=== PATIENT | male | born 1940 | race Caucasian/White ===

== ENCOUNTER 2017-05-01 07:55 | Emergency (ER) | payer OTHER ==
[~2017-05-01] VITALS: Ht 188 cm; Wt 89.5 kg
[~2017-05-01 07:55] MED LIST: BACT800T5 PO; CEPH500C3 PO; METF500 PO; [UNRECOGNIZED DRUG - REMARK]
[2017-05-01 08:05] VITALS: BP 134/64; PULSE 75; RESP 16; TEMP 97.6; O2SAT 98
[2017-05-01] MEDS ORDERED: GLIP5TAB8 PO (08:34)
[2017-05-01] MEDS ORDERED: LISI-519 PO (08:34)
[2017-05-01] MEDS ORDERED: METF500T PO (08:34)
[2017-05-01] MEDS ORDERED: ATOR1TAB18 PO (08:34)
--- NOTE | 2017-05-01 08:36 | PD ---
HPI Chief Complaint: Cold / Flu Symptoms Time Seen by Provider: 08:23 Travel History International Travel<30 days: No Contact w/Intl Traveler<30days: No Traveled to known affect area: No History of Present Illness HPI The patient is a 76-year-old male who presents emergency department for bilateral eye drainage and redness, nasal congestion, sore throat, cough, and body aches. The patient is a 5 day history of a productive cough producing white sputum. He also complains of a mild sore throat and nasal congestion. He now notes his eyes are red with matting in the morning and mild drainage. The patient denies any tobacco use or history of chronic pneumonia. He denies any fever, chills, or sweats. He does complain of generalized weakness and body aches. The patient thinks he has the flu. He denies any nausea, vomiting , diarrhea, or abdominal pain. Symptoms are mild to moderate without any alleviating or exacerbating factors. PFSH Past Medical History Diabetes: Yes Patient Takes Glucophage: Yes Hypertension: Yes Immunizations Current: Yes ([facility] 2016) Influenza Vaccination: Yes Past Surgical History Surgical History: No Previous Surgery Social History Alcohol Use: Yes (RARELY) Tobacco Use: No Substance Use: No Allergies-Medications (Allergen,Severity, Reaction): Coded Allergies: No Known Allergies (Unverified , 05/01/17) Reported Meds & Prescriptions Reported Meds & Active Scripts Active Polytrim Opth Drops (Polymyxin/Trimethoprim Sulfate) 10,000-0.1 Unit/Ml-% Soln 1 Drop EACH EYE Q6HR 7 Days Reported Atorvastatin (Atorvastatin Calcium) 80 Mg Tab 80 Mg PO HS Lisinopril 5 Mg Tab 5 Mg PO DAILY Metformin (Metformin HCl) 500 Mg Tab 500 Mg PO BIDPC With meals Glipizide 5 Mg Tab 5 Mg PO NOON Take 30 minutes before a meal Review of Systems Except as stated in HPI: all other systems reviewed are Neg General / Constitutional: No: Fever, Chills HENT: Positive: Sore Throat, Congestion Cardiovascular: No: Chest Pain or Discomfort Respiratory: Positive: Cough, No: Shortness of Breath Gastrointestinal: No: Nausea, Vomiting, Abdominal Pain, Loss of Appetite Musculoskeletal: Positive: Myalgias, Weakness Physical Exam Narrative GENERAL: Awake, alert, pleasant 76-year-old male who appears his stated age and is in no acute respiratory distress. SKIN: Focused skin assessment warm/dry. HEAD: Atraumatic. Normocephalic. EYES: Pupils equal and round. Mild injection bilateral conjunctiva with matting noted in the eyelashes. ENT: No nasal bleeding or discharge. Mucous membranes pink and moist. Oropharynx reveals cobblestoning in posterior oropharynx but no exudate. NECK: Trachea midline. No JVD. CARDIOVASCULAR: Regular rate and rhythm. No murmur appreciated. RESPIRATORY: No accessory muscle use. Clear to auscultation. Breath sounds equal bilaterally. GASTROINTESTINAL: Abdomen soft, non-tender, nondistended. No rebound tenderness. MUSCULOSKELETAL: No obvious deformities. No clubbing. No cyanosis. No edema. NEUROLOGICAL: Awake and alert. No obvious cranial nerve deficits. Motor grossly within normal limits. Normal speech. PSYCHIATRIC: Appropriate mood and affect; insight and judgment normal. Data Data Last Documented VS Vital Signs Date Time Temp Pulse Resp B/P Pulse Ox O2 Delivery O2 Flow Rate FiO2 05/01/17 08:30 Room Air 05/01/17 08:05 97.6 75 16 134/64 98 Orders Chest, Single Ap (05/01/17 ) [facility] Medical Decision Making Medical Screen Exam Complete: Yes Emergency Medical Condition: Yes Medical Record Reviewed: Yes Interpretation(s) Chest x-ray reveals no acute disease Differential Diagnosis Differential diagnosis includes URI, viral syndrome, influenza, strep pharyngitis, pneumonia, bronchitis. Narrative Course The patient's symptoms of sore throat, cough, nasal congestion, and conjunctivitis most likely are viral in origin. The patient's symptoms have been ongoing for 5 days, therefore, no influenza test performed. Chest x-ray was obtained to evaluate for possible secondary pneumonia. Chest x-ray reveals no acute disease. The patient appears to have a viral syndrome with secondary conjunctivitis. The patient will be placed on Polytrim. He is advised symptomatic care and a follow-up with his primary physician. He will be provided a copy of his chest x-ray results at discharge. Diagnosis Primary Impression: Viral syndrome Additional Impression: Conjunctivitis Qualified Code: H10.33 - Acute conjunctivitis of both eyes, unspecified acute conjunctivitis type Patient Instructions: General Instructions Additional Instructions: Medications as directed. Follow-up with your primary physician. Return if symptoms worsen or progress. Plenty of fluids to stay hydrated. Clean eyes in the morning with warm compresses. Plenty of handwashing. Please provide the patient a copy of his chest x-ray results at discharge. Med/Other Pt SpecificInfo: Prescription(s) given Scripts Polymyxin B-Trimethoprim Opth Drops (Polytrim Opth Drops)10,000-0.1 Unit/Ml-% Soln1 Drop EACH EYE Q6HR 7 Days Ref 0 Prov:Tony Martin MD 05/01/17 Disposition: 01 DISCHARGE HOME Condition: Stable Tony Martin MD May 01, 2017 08:36
[2017-05-01] MEDS ORDERED: POLY10O EACH EYE (08:44)
--- NOTE | 2017-05-01 09:07 | RADRPT ---
EXAM DATE/TIME: 05/01/2017 08:51 [facility] COMPARISON: No previous studies available for comparison. INDICATIONS : Short of breath. MEDICAL HISTORY : Diabetes mellitus type II. SURGICAL HISTORY : None. ENCOUNTER: Initial ACUITY: 4 - 6 days PAIN SCORE: 0/10 LOCATION: Bilateral chest FINDINGS: A single view of the chest demonstrates the lungs to be symmetrically aerated without evidence of mas s, infiltrate or effusion. The cardiomediastinal contours are unremarkable. Osseous structures are intact. CONCLUSION: No acute disease. Eleno Pettit MD FACR on May 01, 2017 at 9:05 Board Certified Radiologist. This report was verified electronically.
== END 2017-05-01 09:52 | disposition home or self-care (01) ==
LOC: PHED 07:55
DX: B34.9 Viral infection, unspecified (principal); H10.33 Unspecified acute conjunctivitis, bilateral; R09.81 Nasal congestion; R07.0 Pain in throat; R05 Cough; M79.1 Myalgia; R53.1 Weakness; E11.9 Type 2 diabetes mellitus without complications; I10 Essential (primary) hypertension; Z79.84 Long term (current) use of oral hypoglycemic drugs
CPT/HCPCS: 71010; 99283